=== PATIENT | male | born 1980 ===

== ENCOUNTER 2017-04-21 16:33 | Emergency (ER) | payer OTHER ==
[2017-04-21 17:00] VITALS: BP 148/87; PULSE 58; RESP 17; TEMP 98.1; O2SAT 99
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
== END 2017-04-21 18:31 | disposition home or self-care (01) ==
LOC: H.ER 16:33
DX: M54.9 Dorsalgia, unspecified (principal); V43.52XA Car driver injured in collision with other type car in traffic accident, initial encounter; Y92.410 Unspecified street and highway as the place of occurrence of the external cause